=== PATIENT | female | born 2000 | race Caucasian/White ===

== ENCOUNTER → 2024-02-11 | Outpatient (CLI) | payer BC ==
--- NOTE | 2024-02-11 16:29 | US ---
EXAMINATION TYPE: US thyroid st tissue head/neck DATE OF EXAM: 02/11/2024 COMPARISON: NONE CLINICAL INDICATION: Female, 23 years old with history of E07.9 DISORDER OF THYROID, UNSPECIFIED; Pat ient states she feels a lump in her throat. No abnormal labs. GLAND SIZE: Right Lobe: 5.2 x 2.4 x 2.2 cm Overall Parenchyma: homogeneous Left Lobe: 4.9 x 1.5 x 1.0 cm Overall Parenchyma: homogeneous Isthmus Thickness: 0.3 cm NODULES RIGHT: # of nodules measured on right: 1 1. 3.2 X 2.2 x 1.9 cm, mid mid, solid or almost completely solid, isoechoic nodule, which is wider than tall, with smooth margins, without echogenic foci. TR 3. Prior size: No prior LEFT: # of nodules measured on left: 0 ISTHMUS: # of nodules measured in the isthmus: 0 Bilateral neck scanned, no evidence of lymphadenopathy. IMPRESSION: Mildly enlarged thyroid gland with dominant right thyroid lobe 3.2 cm TR 3 nodule. Fine needle aspira tion is recommended.
== END | disposition home or self-care (01) ==
LOC: RADUSWWP 15:38
PROVIDERS: ATTEND Family Medicine
DX: E04.1 Nontoxic single thyroid nodule (principal); E07.9 Disorder of thyroid, unspecified
CPT/HCPCS: 76536